=== PATIENT | male | born 1970 | race African-American/Black ===

== ENCOUNTER 2023-07-13 06:36 | Day surgery (SDC) | payer OTHER ==
[2023-07-06 14:08] VITALS: BMI 26.4
[2023-07-13] MEDS ORDERED: BUPIVACAINE HCL/EPINEPHRINE/PF 30 ML VIAL IJ ONE (07:29)
[2023-07-13] MEDS ORDERED: MIDAZOLAM HCL 2 MG/2 ML SINGLE DOSE VIAL ONE (08:37)
[2023-07-13] MEDS ORDERED: ROPIVACAINE HCL 0.5% 30ML VIAL ONE (08:37)
[2023-07-13] MEDS ORDERED: DEXAMETHASONE SOD PHOSPHATE/PF 10 MG/ML SDV ONE (08:37)
[2023-07-13] MEDS ORDERED: FENTANYL CITRATE/PF 50 MCG/ML VIAL ONE (08:37)
[2023-07-13] MEDS ORDERED: PROPOFOL 40 ML ONE (08:59)
[2023-07-13] MEDS ORDERED: SUCCINYLCHOLINE CHLORIDE 200 MG/10 ML SYRINGE ONE (08:59)
[2023-07-13] MEDS ORDERED: oxyCODONE HCL 5 MG TABLET PO PRN ×2 (09:06)
[2023-07-13] MEDS ORDERED: ONDANSETRON 4 MG/2 ML VIAL IVPUSH PRN (09:06)
[2023-07-13] MEDS ORDERED: ACETAMINOPHEN 325 MG TABLET (FP) PO PRN (09:06)
[2023-07-13] MEDS ORDERED: LACTATED RINGERS SOLUTION 1,000 ML IV SCH (09:15)
[2023-07-13] MEDS ORDERED: ceFAZolin SODIUM 1 GM VIAL ONE ×2 (09:29)
[2023-07-13] MEDS ORDERED: ACETAMINOPHEN INJECTION 100 ML IVPB ONE (09:37)
[2023-07-13 12:18] VITALS: RESP 18
[2023-07-13 13:18] VITALS: BP 134/83; PULSE 66; TEMP 97.2
== END 2023-07-13 13:15 | disposition home or self-care (01) ==
LOC: FASU 06:36
PROVIDERS: ATTEND Orthopaedic Surgery
PROC: 0RNK4ZZ Release Left Shoulder Joint, Percutaneous Endoscopic Approach (ICD-10-PCS; principal; 2023-07-13 09:47)
PROC: 0LS44ZZ Reposition Left Upper Arm Tendon, Percutaneous Endoscopic Approach (ICD-10-PCS; 2023-07-13 09:47)
PROC: 0RHK44Z Insertion of Internal Fixation Device into Left Shoulder Joint, Percutaneous Endoscopic Approach (ICD-10-PCS; 2023-07-13 09:47)
DX: M75.122 Complete rotator cuff tear or rupture of left shoulder, not specified as traumatic (principal); M75.22 Bicipital tendinitis, left shoulder; M75.52 Bursitis of left shoulder; M65.862 Other synovitis and tenosynovitis, left lower leg; S43.432A Superior glenoid labrum lesion of left shoulder, initial encounter; X58.XXXA Exposure to other specified factors, initial encounter; Y92.9 Unspecified place or not applicable; Y93.9 Activity, unspecified
CPT/HCPCS: 29823; 29826; 29828; C1713; 88304-TC; 94760